=== PATIENT | female | born 1965 | race Caucasian/White ===

== ENCOUNTER 2022-10-25 11:35 | Emergency (ER) | payer OTHER, SELFPAY ==
[2022-10-25 11:37] VITALS: BP 145/82; PULSE 80; RESP 14; TEMP 36.4; O2SAT 97; BMI 25.8
--- NOTE | 2022-10-25 12:42 | EX.ED.VIS.HA ---
HPI <ZACHARY Terry - Last Filed: 10/25/22 15:27> History of Present Illness Chief Complaint: Headache Narrative Narrative: Patient presents today with a headache that she has had since 11 PM last night. She states she was having intercourse and once she had an orgasm, she developed a sudden intense headache and neck pain. She states this happened to her last Tuesday but was not as severe and went away the next day. She reports photophobia, nausea, head, and neck pain. She is also complaining of some right-sided chest tightness and pain that radiates to her back. PFSH <ZACHARY Terry - Last Filed: 10/25/22 15:27> [facility] Medical History (Updated 10/25/22 @ 14:01 by ZACHARY Terry) Anxiety GERD (gastroesophageal reflux disease) IBS (irritable bowel syndrome) Allergy/AdvReac Type Severity Reaction Status Date / Time morphine Allergy Itching Verified 10/25/22 11:39 Sulfa (Sulfonamide Allergy Itching Verified 10/25/22 11:39 Antibiotics) Social History Smoking Status: Current every day smoker tobacco type: cigarettes ROS <ZACHARY Terry - Last Filed: 10/25/22 15:27> ROS ED Constitutional Constitutional ED: Denies chills, fever(s) or sweats Eyes Eyes: Denies blurry vision, change in vision or photophobia ENT ENT ED: Denies rhinorrhea or sore throat Cardiovascular Cardiovascular: Reports chest pain; Denies palpitations or racing heartbeat Respiratory/Chest Respiratory/Chest: Denies cough, dyspnea or dyspnea on exertion Gastrointestinal Gastrointestinal: Reports nausea; Denies abdominal pain or vomiting Genitourinary Genitourinary ED: Denies dysuria, hematuria or urinary frequency Musculoskeletal Musculoskeletal: Reports neck pain; Denies back pain or myalgias Integumentary Denies abscess, Abrasions or rash Neurologic Neurologic: Reports headache(s); Denies paresthesias or weakness Psychiatric Psychiatric: Denies anxiety, depression or suicidal ideation EXAM <ZACHARY Terry - Last Filed: 10/25/22 15:27> Physical Exam Const Vital Signs: 10/25/22 11:37 Temperature 97.6 F L Temperature Source Temporal Pulse Rate 80 Respiratory Rate 14 Blood Pressure 145/82 H Blood Pressure Mean 103 Pulse Ox 97 Oxygen Delivery Method Room Air Positive well nourished and well developed General Appearance ED: well developed and NAD HEENT Reports normocephalic and moist mucous membranes atraumatic; Negative for tenderness Eyes PERRL and EOMs intact bilaterally Neck no lymphadenopathy and supple Chest Wall inspection of chest normal and palpation of chest normal Resp normal respiratory effort and clear to auscultation bilaterally Cardio regular rate, regular rhythm and no murmurs GI non-tender and non-distended Palpation: soft Back/Spine Cervical Spine: Negative for cervical spine tenderness Thoracic Spine / Upper Back: Negative for thoracic spinal tenderness Lumbar Spine / Lower Back: Negative for lumbar spinal tenderness Extremity normal to inspection, full ROM and normal capillary refill Neuro oriented x3, CN's II-XII intact bilaterally and no sensory deficits noted Sensorium / Orientation: awake and alert Speech: speech normal Gait (Neuro): normal gait Motor Exam: strength 5/5 throughout Psych mental status grossly normal Skin General Skin Exam: elasticity normal Lesions: no lesions Rashes: no rashes <Dr. Norman Ellison DO - Last Filed: 10/25/22 14:23> Physical Exam Const Vital Signs: 10/25/22 11:37 Temperature 97.6 F L Temperature Source Temporal Pulse Rate 80 Respiratory Rate 14 Blood Pressure 145/82 H Blood Pressure Mean 103 Pulse Ox 97 Oxygen Delivery Method Room Air MDM <ZACHARY Terry - Last Filed: 10/25/22 15:27> [facility] Narrative Medical decision making narrative: CTA of the brain negative for any intracranial processes. Patient EKG normal sinus rhythm and troponin WNL. Patient has been given Tylenol, Reglan, and Benadryl. Upon reexamination patient states her headache is feeling much better. She states she would like to go home so that she can eat lunch. I am comfortable with patient discharging home. She does not have a PCP so I have referred her to one. Patient is comfortable with plan. Lab Data Attestation: I reviewed the patient's lab results. Lab results narrative: Anion gap 28. CBC unremarkable. Troponin 6. Labs: Laboratory Results - last 24 hr 10/25/22 10/25/22 13:01 13:01 WBC 8.2 RBC 4.76 Hgb 14.5 Hct 44.2 MCV 92.9 MCH 30.5 MCHC 32.8 RDW Std Deviation 47.0 H RDW Coeff of Rodrigo 13.7 Plt Count 239 MPV 11.4 Immature Gran % (Auto) 0.400 Neut % (Auto) 62.8 Lymph % (Auto) 22.7 Hart % (Auto) 10.6 H Eos % (Auto) 2.9 Baso % (Auto) 0.6 Absolute Neuts (auto) 5.2 Absolute Lymphs (auto) 1.87 Nucleated RBC % 0 Sodium 135 L Potassium 4.2 Chloride 107 Carbon Dioxide 25.0 Anion Gap 3 L BUN 10 Creatinine 0.69 Estim Creat Clear Calc 84.21 Est GFR (MDRD) Af Amer 113 Est GFR (MDRD) Non-Af 93 BUN/Creatinine Ratio 14.6 Glucose 105 Calcium 9.3 Troponin I High Sens 6 Radiography Diagnostic Testing: Clinical Impression(s) from Imaging Studies Head CTA 10/25/22 12:44 IMPRESSION: Normal unenhanced and enhanced CT scan of the brain. Electronically Signed: Anthony Ho MD at 13:43 EST , Head CT negative for any intracranial processes. This CT has also been reviewed and interpreted by attending ED physician. EKG Initial EKG: Attestation: I personally reviewed and interpreted this EKG as follows: Interpretation: Sinus Rhythm Comments: [address] elevation. This EKG has also been reviewed and interpreted by attending ED physician. <Dr. Norman Ellison, DO - Last Filed: 10/25/22 14:23> [facility] Lab Data Labs: Laboratory Results - last 24 hr 10/25/22 10/25/22 13:01 13:01 WBC 8.2 RBC 4.76 Hgb 14.5 Hct 44.2 MCV 92.9 MCH 30.5 MCHC 32.8 RDW Std Deviation 47.0 H RDW Coeff of Rodrigo 13.7 Plt Count 239 MPV 11.4 Immature Gran % (Auto) 0.400 Neut % (Auto) 62.8 Lymph % (Auto) 22.7 Hart % (Auto) 10.6 H Eos % (Auto) 2.9 Baso % (Auto) 0.6 Absolute Neuts (auto) 5.2 Absolute Lymphs (auto) 1.87 Nucleated RBC % 0 Sodium 135 L Potassium 4.2 Chloride 107 Carbon Dioxide 25.0 Anion Gap 3 L BUN 10 Creatinine 0.69 Estim Creat Clear Calc 84.21 Est GFR (MDRD) Af Amer 113 Est GFR (MDRD) Non-Af 93 BUN/Creatinine Ratio 14.6 Glucose 105 Calcium 9.3 Troponin I High Sens 6 Radiography Diagnostic Testing: Clinical Impression(s) from Imaging Studies Head CTA 10/25/22 12:44 IMPRESSION: Normal unenhanced and enhanced CT scan of the brain. Electronically Signed: Anthony Ho MD at 13:43 EST , Treatment and Re-Evaluation Narrative: I have personally performed a face to face assessment of the patient and have reviewed the JASSON Note. I performed a substantive portion of the visit including all aspects of the following. My owens findings include: History: Patient presents with a headache that began last night. Patient states her headache began rather suddenly. Patient states she was having sexual intercourse when her headache began. Patient states her pain radiates into her neck and right upper chest. Patient denies any visual changes. Patient admits to nausea but denies any vomiting. Patient denies any fevers or chills. Patient denies any tinnitus. Patient states nothing makes her pain worse and nothing makes it better. Exam: Vital signs are stable. Patient is afebrile. Patient is in no acute distress. Cranial nerves II through XII are intact. Strength is 5/5 bilaterally upper and lower extremities. There are no sensory deficits noted. Heart was regular rate and rhythm. Lungs are clear and equal bilaterally. Abdomen is soft. Bowel sounds are normal. Neck is supple. Trachea is midline. There is no JVD or lymphadenopathy. Medical Decision Making: Patient was given IV fluids, Reglan, and Benadryl. EKG was obtained. On my interpretation, it shows a normal sinus rhythm with a rate of 69. There are no acute ST or T wave changes. [place] interval, QRS interval, and QTc intervals are within normal limits. [place] was normal. CT scan of the brain was obtained. There is no acute intracranial abnormality noted. CTA of the head was obtained. There is no evidence of aneurysm or bleeding. These were interpreted by the radiologist and reviewed by myself. CBC and basic metabolic profile were obtained and were within normal limits. High-sensitivity troponin was normal. Patient is feeling better on reevaluation. Patient was instructed to rest in a dark quiet room. Patient was instructed to follow-up with her primary care physician in 5 to 7 days. Patient understood and was agreeable with plan. All questions were answered. Discharge Plan Triage Chief Complaint: Headache ED Midlevel Provider: Riya Culver ED Provider: Norman Ellison Dx/Rx/DC Orders Clinical Impression: Headache Instructions: ED Headache Unspecified Primary Care Provider: Care Physician,No Primary Referrals: Pee Anne MD [Med Staff - [employer]] - 5-7 Days Care Physician,No Primary [Primary Care Provider] - Activity Restrictions/Additional Instructions: Please follow-up with PCP I have referred you to. Please return if symptoms worsen. Disposition Disposition: Home, Self Care Discharge Date/Time: 10/25/22 14:08
--- NOTE | 2022-10-25 12:44 | CT_ITS ---
STUDY: CT BRAIN WITH AND WITHOUT CONTRAST REASON FOR EXAM: Female, 56 years old. Headache RADIATION DOSAGE (If Supplied By Facility): CTDIvol = ( 27.18 ) mGy, DLP = ( 1203.70 ) mGycm TECHNIQUE: Transaxial CT imaging of the brain was performed pre and post contrast administration. The examination was performed with intravenous administration of IV 100mL Isovue-370. Individualized dose optimization techniques were used for this CT. COMPARISON: None. FINDINGS: Normal soft tissue structures. Normal calvarium. Normal size ventricles and extra-axial spaces for the patient''s age. Normal white matter tracts of the cerebral hemispheres. Normal basal ganglia and thalami. Normal brainstem. Normal cerebellum. There is no intracranial hemorrhage. There are no findings of an acute ischemic infarction. Normal visualized paranasal sinuses. CT/CTA Head W/WO Contrast IMPRESSION: Normal unenhanced and enhanced CT scan of the brain. Electronically Signed: Anthony Ho MD at 13:43 EST ,
--- NOTE | 2022-10-25 12:50 | EKG12_ITS ---
Test Reason : HEADACH Blood Pressure : / mmHG Vent. Rate : 069 BPM Atrial Rate : 069 BPM P-R Int : 126 ms QRS Dur : 076 ms QT Int : 420 ms P-R-T Axes : 060 061 050 degrees QTc Int : 450 ms Normal sinus rhythm Normal ECG Confirmed by GELY ORDOÑEZ, DACIA ([id number]), editor trade journal [employer] ([id number]) on 10/27/2022 10:12:28 AM Referred By: Confirmed By:DACIA HONG MD
[2022-10-25 13:09] LABS: Absolute Lymphocyte Count 1.87 X10^3/uL (0.83-4.51); Absolute Neutrophil Count 5.2 X10^3/uL (2.0-7.7); Basophil# 0.05 X10^3/uL; Basophil% 0.6 % (0-1); Eosinophil# 0.24 X10^3/uL; Eosinophils% 2.9 % (0-5); Hematocrit 44.2 % (37-47); Hemoglobin 14.5 g/dL (12.0-15.0); Lymphocyte # 1.87 X10^3/ul (0.83-4.51); Lymphocyte % 22.7 % (19-41); Mean Corp Hgb Conc 32.8 g/dL (32-36); Mean Corpuscular Hgb 30.5 pg (27.0-32.0); Mean Corpuscular Volume 92.9 fL (81-99); Mean Platelet Vol. 11.4 fl (6.2-12.0); Monocyte# 0.87 X10^3/uL; Monocyte% 10.6 % (0-10); NRBC Flagged by Analyzer 0 % (0-5); Neutrophil # 5.16 X10^3/uL (2.7-7.7); Neutrophil % 62.8 % (47-70); Platelet Count 239 K/mm3 (150-450); RBC Distribution Width CV 13.7 % (11.6-14.6); Red Blood Count 4.76 M/mm3 (4.2-5.4); White Blood Count 8.2 K/mm3 (4.4-11.0)
[2022-10-25 13:27] LABS: Anion Gap 3 (5-15); BUN 10 mg/dL (7-18); BUN/Creat Ratio 14.6 RATIO (10-20); Calcium,Total 9.3 mg/dL (8.5-10.1); Chloride 107 mmol/L (98-107); Creatinine, Serum 0.69 mg/dL (0.55-1.02); EST Glomerular Filtration Rate 93 mL/min (>60); Est Glom Filt Rate - Afr Amer 113 mL/min (>60); Estimated Creatinine Clearance 84.21 ml/min; Glucose 105 mg/dL (74-106); Potassium 4.2 mmol/L (3.5-5.1); Sodium Level 135 mmol/L (136-145); Troponin-I HS 6 pg/mL (3.0-54.0)
[2022-10-25] MEDS: DiphenhydrAMINE 50 MG/ML Syringe 25 MG IV (13:28)
[2022-10-25] MEDS: Acetaminophen 325 MG Tablet 650 MG PO (13:28)
[2022-10-25] MEDS: Metoclopramide 10 MG/2 ML Vial IV (13:28)
== END 2022-10-25 14:08 | disposition home or self-care (01) ==
PROVIDERS: Physician Assistant; Emergency Provider Emergency Medicine; Visit Provider Emergency Medicine
DX: R51.9 Headache, unspecified (principal); F17.210 Nicotine dependence, cigarettes, uncomplicated; M54.2 Cervicalgia
CPT/HCPCS: 70496; 80048; 84484; 85025; 93005; 96374; 96375; 99283; Q9967; A4216

== ENCOUNTER → 2024-01-20 | Outpatient (CLI) | payer OTHER, SELFPAY | END | disposition home or self-care (01) | LOC: MTLAB 08:58 | PROVIDERS: PCP Nurse Practitioner Family; Referring Provider Physician Assistant Medical; Visit Provider Physician Assistant Medical | DX: L40.0 Psoriasis vulgaris (principal) | CPT/HCPCS: 36415; 86480 ==

== ENCOUNTER → 2024-04-25 | Outpatient (CLI) | payer OTHER, SELFPAY | END | disposition home or self-care (01) | PROVIDERS: PCP Nurse Practitioner Family; Referring Provider Nurse Practitioner Family; Visit Provider Nurse Practitioner Family | DX: R19.7 Diarrhea, unspecified (principal) | CPT/HCPCS: 82274; 87177; 87209; 87493 ==